=== PATIENT | female | born 1975 | race Caucasian/White ===

== ENCOUNTER → 2017-08-13 | Outpatient (CLI) | payer BC ==
--- NOTE | 2017-08-13 12:12 | KCIC ---
EXAM: Bilateral screening mammogram. HISTORY: 41-year-old female presents for screening mammography. TECHNIQUE: Full-field digital craniocaudal and mediolateral oblique standard and breast implant displaced views of both breasts are obtained for evaluation. Computer aided detection with VISupD software version 9.3 was applied. COMPARISON: April 04, 2016, 05/19/2015 and 04/13/2014 BREAST PARENCHYMAL DENSITY: Level C - Heterogeneously dense. FINDINGS: There is no new suspicious mass, microcalcification or region of architectural distortion. There is a stable mass within the 3:00 position of the right breast compared to multiple prior studies. There is additional nodularity within the slightly lateral aspect of the right breast on the craniocaudal projection which is more conspicuous compared to prior studies. There are unremarkable breast implants. IMPRESSION: BI-RADS Category 0: Additional imaging needed. RECOMMENDATION: Further evaluation with a right breast sonogram to assess nodularity within the slightly lateral aspect of the right breast is recommended. If your mammogram demonstrates that you have dense breast tissue, which could hide abnormalities, and if you have other risk factors for breast cancer that have been identified, you might benefit from supplemental screening tests that may be suggested by your ordering physician. Dense breast tissue, in and of itself, is a relatively common condition. This information is not provided to cause undue concern, but rather to raise your awareness and to promote discussion with your physician regarding the presence of other risk factors, in addition to dense breast tissue. A report of your mammography results will be sent to you and your physician. You should contact your physician if you have any questions or concerns regarding this report. Mammography is a sensitive method for finding small breast cancers, but it does not detect them all and is not a substitute for careful clinical examination. A negative mammogram does not negate a clinically suspicious finding and should not result in delay in biopsying a clinically suspicious abnormality. PQRS compliance statement - Patient information was entered into a reminder system with a target due date for the next mammogram. "Our facility is accredited by the [employer] Mammography [employer]." Electronically signed by: Nini Manriquez MD (08/13/2017 12:09 PM) [id number]
== END | disposition home or self-care (01) ==
LOC: KCIC MAMMO 09:07
PROVIDERS: ATTEND Obstetrics & Gynecology
DX: Z12.31 Encounter for screening mammogram for malignant neoplasm of breast (principal)
CPT/HCPCS: G0202; 77067

== ENCOUNTER → 2017-08-21 | Outpatient (CLI) | payer BC ==
--- NOTE | 2017-08-21 09:55 | KCIC ---
Right breast diagnostic ultrasound History asymmetric tissue densities on the August 13, 2027 14 mammogram Sonographic examination of the right breast was performed and multiple static images were obtained Direct comparison is made to the May 19, 2015 ultrasound and correlation is made with the recent mammogram. There is an intramammary lymph node in the 9:00 breast 9 cm from the nipple and appears normal. There is a benign-appearing mass at 12:00 right breast which is consistent with a fibroadenoma and measures 2.7 x 1.5 x 0.8 cm. There is a cluster of cysts in the 11:30 right breast 5 cm from the nipple that measures 5 mm x 4 mm x 3 mm. The breast implant appears grossly intact. There are normal-appearing lymph nodes in the right axilla. IMPRESSION: Benign-appearing findings. Recommend a 6 month follow-up right breast ultrasound to assess stability. Results were given to the patient in person. BI-RADS Category 3: Probably Benign. Electronically signed by: Jose Stone III, MD (08/21/2017 9:51 AM) [id number]
== END | disposition home or self-care (01) ==
LOC: KCIC US 08:55
PROVIDERS: ATTEND Obstetrics & Gynecology
DX: R92.8 Other abnormal and inconclusive findings on diagnostic imaging of breast (principal)
CPT/HCPCS: 76641

== ENCOUNTER → 2018-02-10 | Outpatient (CLI) | payer BC | END | disposition home or self-care (01) | LOC: KCIC US 08:56 | DX: N63.11 Unspecified lump in the right breast, upper outer quadrant (principal) | CPT/HCPCS: 76641 ==

== ENCOUNTER → 2021-03-16 | Outpatient (CLI) | payer BC ==
--- NOTE | 2021-03-16 13:49 | KCIC ---
Bilateral diagnostic digital mammograms with 3-D tomosynthesis: Reason for examination: Follow-up mass. Comparison is made to previous studies dated back to 05/16/2015. Bilateral mammograms in CC and oblique projections were obtained with 2-D imaging and 3-D tomosynthes is imaging on a Siemens Inspiration unit and reviewed on the workstation. Interpretation was made wit h the benefit of CAD. The skin and nipples show no abnormalities. No abnormal axillary lymph nodes are seen. Bilateral onur st implants remain present. The breast parenchyma is extremely dense. (Breast density: Category D.) T here continues to be a mass in the central 12:00 to 1:00 position of the right breast which has been previously biopsied with benign pathology and appears to be stable. There are no new dominant masses, suspicious calcifications or architectural distortion. Impression: Persistent mass at the central 12:00 o'clock position of the right breast. Ultrasound to follow. Your patient's mammogram demonstrates that she has dense breast tissue (breast density category C or D), which could hide abnormalities, and if she has other risk factors for breast cancer that have bee n identified, she might benefit from supplemental screening tests that may be suggested by you as her ordering physician. Dense breast tissue, in and of itself, is a relatively common condition. Therefo re, this information is not provided to cause undue concern, but rather to raise your awareness and t o promote discussion with your patient regarding the presence of other risk factors, in addition to d ense breast tissue. Your patient's mammography results will be sent to her. BI-RAD Category 0: Incomplete. Needs additional imaging evaluation. Right breast ultrasound: Comparison is made to previous studies dated 02/10/2018 and 08/21/2017. Ultrasound examination of the right breast and axilla was performed. At the 12:00 position 4 cm from the nipple, there continues to be a 2.5 cm hypoechoic heterogeneous m ass which lies in parallel orientation. This appears to be stable there is an intramammary lymph node at the 9:30 position 9 cm from the nipple which is stable. No new cystic or solid nodules are seen. No abnormal appearing lymph nodes are seen in the right axilla. IMPRESSION: 2.5 cm heterogeneous nodule at the 12:00 position 4 cm from the nipple which has been previously biop sied with benign pathology. No new suspicious abnormalities are seen. Recommend routine mammographic follow-up. BI-RADS Category 2: Benign. "Our facility is accredited by the [employer] Mammography [employer]." This patient's information has been entered into a reminder system for the patient to be notified wit h the results of her examination and a target date for the next mammogram. Electronically signed by: Nadine Tan MD (03/16/2021 1:46 PM) [id number]
== END ==
LOC: KCIC MAMMO 09:07
PROVIDERS: ATTEND Internal Medicine
DX: N63.11 Unspecified lump in the right breast, upper outer quadrant (principal)
CPT/HCPCS: 76641; 77066; G0279; 77062